=== PATIENT | female | born 1990 | race Caucasian/White ===

== ENCOUNTER 2023-05-23 20:03 | Inpatient (IN) | payer SELFPAY ==
[~2023-05-23 20:03] MED LIST: Iopamidol-370 76% 500 ML MDV (1 ML CHARGE) ONE
[2023-05-23] MEDS ORDERED: diphenhydrAMINE 50 MG/ML VIAL ONE (20:25)
[2023-05-23] MEDS ORDERED: Haloperidol Lactate 5 MG/ML VIAL ONE (20:25)
[2023-05-23] MEDS ORDERED: Promethazine HCl 25 MG in Sodium Chloride 0.9% 50 ML IVPB SCH (20:30)
[2023-05-23 20:33] LABS: #Basophils 0.1 thou/uL (0.0-0.2); #Neutrophils 10.3 thou/uL (1.40-6.50); %Basophils 0.4 % (0.0-1.0); %Lymphocytes 7.6 % (21.0-51.0); %Neutrophils 83.6 % (42.0-75.0); Hemoglobin 15.7 g/dL (12.0-16.0); Mean Corpuscular HGB CONC 37.8 g/dL (32.0-36.0); Mean Corpuscular Hemoglobin 31.8 pg (27.0-31.0); Mean Platelet Volume 11.6 fL (7.4-10.4); Platelet Count 315 10x3/uL (130-400); RBC Distribution Width 11.5 % (11.5-14.5); Red Blood Cell (RBC) Count 4.94 mill/uL (4.20-5.40); White Blood Cell (WBC) Count 12.3 10x3/uL (4.8-10.8)
[2023-05-23 20:40] LABS: BHCG - Serum Negative (NEGATIVE); Pregs Control Background? CLEAR/WHITE (CLR/WHITE); Pregs Control Bar Appear? YES (CONTROL BAR)
[2023-05-23 20:51] LABS: ALT (SGPT) 11 U/L (8-55); AST (SGOT) 20 U/L (5-34); Acetaminophen Less than 10 mcg/mL (10.0-30.0); Albumin 4.5 g/dL (3.5-5.0); Alcohol Less than 10.0 mg/dL (Less than 10); Alkaline Phosphatase 75 U/L (40-110); Anion Gap 22 mmol/L (10-20); BUN (Urea Nitrogen) 9 mg/dL (7.0-18.7); Bilirubin, Total 0.7 mg/dL (0.2-1.2); CK (CPK) 88 U/L (29-168); Calc. Creatinine Clearance 0 mL/min (70-130); Calcium 10.1 mg/dL (7.8-10.44); Carbon Dioxide 32 mmol/L (22-29); Chloride 80 mmol/L (98-107); Estimated GFR 55; Globulin 3.4 g/dL (2.4-3.5); Glucose 135 mg/dL (70-105); Lipase 33 U/L (8-78); Protein, Total 7.9 g/dL (6.0-8.3); Salicylate Less than 8.0 mg/dL (15.0-30.0); Sodium 132 mmol/L (136-145)
[2023-05-23] MEDS ORDERED: Potassium Bicarbonate/Cit Ac 25 MEQ TAB ONE (21:04)
[2023-05-23] MEDS ORDERED: D5 1/2 NS w/20 mEq KCL 1,000 ML IV SCH (21:15)
[2023-05-23] MEDS ORDERED: Magnesium 2 GM/50 ML BAG (IN WATER) ONE (21:41)
[2023-05-23] MEDS ORDERED: Scopolamine 1.5 mg/72 hour Patch TD SCH (22:00)
[2023-05-23] MEDS ORDERED: Pantoprazole 40 MG VIAL IVP SCH (22:30)
[2023-05-23] MEDS ORDERED: levETIRAcetam 500 MG/5 ML VIAL SLOW IVP SCH (22:45)
[2023-05-23] MEDS: Acetaminophen 325 MG TAB PO PRN (23:37)
[2023-05-23] MEDS: Potassium Chloride 20 MEQ in Premix Bag 1 BAG IVPB SCH (23:50)
[2023-05-23] MEDS: NS 0.9% w/ 20 MEQ KCL 1,000 ML/1,000 ML BAG IV SCH (23:51)
[2023-05-24 00:26] LABS: Amphetamine Not Detected (NotDetected); Barbiturates Screen Not Detected (NotDetected); Benzodiazepine Screen Not Detected (NotDetected); Cocaine Metabolite Screen Not Detected (NotDetected); Methadone Not Detected (NotDetected); Methamphetamine Not Detected (NotDetected); Opiate Screen Detected (NotDetected); Oxycodone Screen Not Detected (NotDetected); Phencyclidine (PCP) Not Detected (NotDetected); THC/Cannabinoid Screen Detected (NotDetected); Tricyclic Screen Not Detected (NotDetected)
[2023-05-24 00:27] LABS: Bacteria/HPF None Seen HPF (None Seen); Bilirubin Negative (Negative); Blood, Urine Negative (Negative); CAUTI Indications for Culture Dysuria,urgency,freq; Clarity Clear (Clear); Glucose, Urine (Dipstick) Normal (Negative); Ketone, Urine Negative (Negative); Leukocyte Negative Leu/uL (Negative); Nitrite Negative (Negative); Protein, Urine (Dipstick) 20 mg/dL (Neg-Trace); Specific Gravity, Urine 1.041 (1.002-1.036); Urobilinogen Normal mg/dL (Less than 2); pH, Urine 7.5 (5.0-9.0)
[2023-05-24 00:32] LABS: Urine Culture Reflex No No
[2023-05-24 00:55] VITALS: BMI 18.2
[2023-05-24] MEDS: Potassium Chloride 20 MEQ in Premix Bag 1 BAG IVPB SCH (01:28)
[2023-05-24] MEDS ORDERED: Potassium Chloride 20 MEQ TAB PO SCH (01:45)
[2023-05-24 05:58] LABS: #Monocytes 0.6 thou/uL (0.11-0.59); #Neutrophils 4.5 thou/uL (1.40-6.50); %Basophils 0.3 % (0.0-1.0); %Lymphocytes 17.7 % (21.0-51.0); %Monocytes 9.7 % (0.0-10.0); %Neutrophils 71.8 % (42.0-75.0); Mean Corpuscular HGB CONC 36.9 g/dL (32.0-36.0); Platelet Count 215 10x3/uL (130-400); RBC Distribution Width 11.8 % (11.5-14.5); Red Blood Cell (RBC) Count 3.75 mill/uL (4.20-5.40); White Blood Cell (WBC) Count 6.3 10x3/uL (4.8-10.8)
[2023-05-24] MEDS: NS 0.9% w/ 20 MEQ KCL 1,000 ML/1,000 ML BAG IV SCH ×3 (06:05→20:53)
[2023-05-24 06:07] LABS: Mean Corpuscular Volume 86.7 fl (78.0-98.0)
[2023-05-24 06:24] LABS: ALT (SGPT) 8 U/L (8-55); AST (SGOT) 16 U/L (5-34); Albumin 3.3 g/dL (3.5-5.0); Alkaline Phosphatase 55 U/L (40-110); Anion Gap 13 mmol/L (10-20); BUN (Urea Nitrogen) 7 mg/dL (7.0-18.7); Bilirubin, Total 0.6 mg/dL (0.2-1.2); Calc. Creatinine Clearance 71 mL/min (70-130); Calcium 8.2 mg/dL (7.8-10.44); Carbon Dioxide 35 mmol/L (22-29); Chloride 90 mmol/L (98-107); Estimated GFR 94; Globulin 2.3 g/dL (2.4-3.5); Glucose 105 mg/dL (70-105); Magnesium 2.7 mg/dL (1.6-2.6); Potassium 2.3 mmol/L (3.5-5.1); Protein, Total 5.6 g/dL (6.0-8.3); Sodium 136 mmol/L (136-145)
[2023-05-24] MEDS: Potassium Chloride 20 MEQ TAB PO SCH ×4 (06:42→20:51)
[2023-05-24] MEDS ORDERED: Electrolyte Replacement Protocol FS PRN (06:45)
[2023-05-24] MEDS: levETIRAcetam 500 MG TAB PO SCH ×2 (09:31→20:53)
[2023-05-24] MEDS: Senokot S 8.6-50 MG TAB PO SCH ×2 (09:31→20:53)
[2023-05-24] MEDS: Pantoprazole 40 MG VIAL IVP SCH (09:31)
[2023-05-24] MEDS: Polyethylene Glycol 3350 17 GM Packet PO SCH (09:31)
[2023-05-24] MEDS ORDERED: Potassium Bicarbonate/Cit Ac 20 MEQ TAB PO SCH (12:00)
[2023-05-24] MEDS: Acetaminophen/Codeine 30-300mg Tablet PO PRN ×2 (12:14→20:51)
[2023-05-24 17:49] LABS: Potassium 3.5 mmol/L (3.5-5.1)
[2023-05-24] MEDS: Promethazine 25 MG TAB PO PRN (20:52)
[2023-05-24] MEDS: Amoxicillin/Potassium Clav 500 MG TAB PO SCH (20:53)
[2023-05-25] MEDS: Acetaminophen/Codeine 30-300mg Tablet PO PRN ×3 (03:04→22:46)
[2023-05-25] MEDS: Promethazine 25 MG TAB PO PRN ×4 (03:05→22:46)
[2023-05-25] MEDS ORDERED: SUMAtriptan Succinate 6 MG/0.5 ML VIAL SC SCH (04:00)
[2023-05-25] MEDS ORDERED: traMADol HCl 50 MG TAB PO SCH (04:45)
[2023-05-25] MEDS ORDERED: Ondansetron PF 4 MG/2 ML Vial IVP SCH (04:45)
[2023-05-25 05:28] LABS: #Monocytes 0.5 thou/uL (0.11-0.59); #Neutrophils 3.2 thou/uL (1.40-6.50); %Basophils 0.6 % (0.0-1.0); %Eosinophils 0.4 % (0.0-10.0); %Lymphocytes 22.2 % (21.0-51.0); %Monocytes 9.7 % (0.0-10.0); %Neutrophils 66.9 % (42.0-75.0); Hemoglobin 11.9 g/dL (12.0-16.0); Mean Corpuscular HGB CONC 34.4 g/dL (32.0-36.0); Mean Corpuscular Hemoglobin 32.2 pg (27.0-31.0); Mean Platelet Volume 11.8 fL (7.4-10.4); Platelet Count 167 10x3/uL (130-400); RBC Distribution Width 12.3 % (11.5-14.5); White Blood Cell (WBC) Count 4.7 10x3/uL (4.8-10.8)
[2023-05-25 05:31] LABS: Mean Corpuscular Volume 93.5 fl (78.0-98.0)
[2023-05-25 05:47] LABS: ALT (SGPT) 9 U/L (8-55); AST (SGOT) 13 U/L (5-34); Albumin 3.3 g/dL (3.5-5.0); Alkaline Phosphatase 51 U/L (40-110); Anion Gap 11 mmol/L (10-20); BUN (Urea Nitrogen) 4 mg/dL (7.0-18.7); Bilirubin, Total 0.7 mg/dL (0.2-1.2); Calc. Creatinine Clearance 89 mL/min (70-130); Calcium 8.2 mg/dL (7.8-10.44); Carbon Dioxide 24 mmol/L (22-29); Chloride 110 mmol/L (98-107); Estimated GFR 120; Globulin 2.3 g/dL (2.4-3.5); Glucose 77 mg/dL (70-105); Magnesium 2.1 mg/dL (1.6-2.6); Potassium 3.8 mmol/L (3.5-5.1); Protein, Total 5.6 g/dL (6.0-8.3); Sodium 141 mmol/L (136-145)
[2023-05-25 05:50] LABS: Phosphorus Less than 1.0 mg/dL (2.3-4.7)
[2023-05-25] MEDS: NS 0.9% w/ 20 MEQ KCL 1,000 ML/1,000 ML BAG IV SCH ×3 (06:39→22:46)
[2023-05-25 06:55] LABS: Phosphorus Less than 1.0 mg/dL (2.3-4.7)
[2023-05-25] MEDS ORDERED: Potassium Phosphate 30 MMOL in Sodium Chloride 0.9% 500 ML IVPB SCH (09:00)
[2023-05-25] MEDS: Polyethylene Glycol 3350 17 GM Packet PO SCH (09:52)
[2023-05-25] MEDS: Thiamine 100 MG TAB PO SCH (09:52)
[2023-05-25] MEDS: pyridOXINE 50 MG (B6) TAB PO SCH (09:53)
[2023-05-25] MEDS: K-Phos Neutral 250 MG TAB PO SCH ×3 (09:53→17:21)
[2023-05-25] MEDS: levETIRAcetam 500 MG TAB PO SCH ×2 (09:53→20:13)
[2023-05-25] MEDS: Saccharomyces boulardii 250 MG CAP PO SCH (09:53)
[2023-05-25] MEDS: Senokot S 8.6-50 MG TAB PO SCH ×2 (09:53→20:13)
[2023-05-25] MEDS: Cyanocobalamin (Vitamin B-12) 1,000 MCG TAB PO SCH (09:53)
[2023-05-25] MEDS: Multivit, Therapeutic 1 TAB PO SCH (09:53)
[2023-05-25] MEDS: Folic Acid 1 MG TAB PO SCH (09:53)
[2023-05-25] MEDS: Pantoprazole 40 MG VIAL IVP SCH (09:54)
[2023-05-25] MEDS: Amoxicillin/Potassium Clav 500 MG TAB PO SCH ×2 (09:54→20:13)
[2023-05-25] MEDS: Dicyclomine 10 MG CAP PO SCH ×3 (13:49→20:13)
[2023-05-25] MEDS: Bisacodyl 10 MG SUPP PR SCH (20:13)
[2023-05-26] MEDS ORDERED: traMADol HCl 50 MG TAB PO SCH (01:00)
[2023-05-26] MEDS: Acetaminophen 325 MG TAB PO PRN (01:17)
[2023-05-26 06:16] LABS: #Eosinphils 0.1 thou/uL (0.0-0.7); #Monocytes 0.3 thou/uL (0.11-0.59); #Neutrophils 2.8 thou/uL (1.40-6.50); %Basophils 0.6 % (0.0-1.0); %Eosinophils 1.1 % (0.0-10.0); %Lymphocytes 30.7 % (21.0-51.0); %Monocytes 6.7 % (0.0-10.0); %Neutrophils 59.8 % (42.0-75.0); Hemoglobin 10.7 g/dL (12.0-16.0); Mean Corpuscular HGB CONC 33.4 g/dL (32.0-36.0); Mean Corpuscular Hemoglobin 31.9 pg (27.0-31.0); Mean Corpuscular Volume 95.5 fl (78.0-98.0); Platelet Count 175 10x3/uL (130-400); RBC Distribution Width 12.3 % (11.5-14.5); Red Blood Cell (RBC) Count 3.35 mill/uL (4.20-5.40); White Blood Cell (WBC) Count 4.6 10x3/uL (4.8-10.8)
[2023-05-26] MEDS ORDERED: Promethazine HCl 12.5 MG in Sodium Chloride 0.9% 50 ML IVPB SCH (09:00)
[2023-05-26] MEDS: Amoxicillin/Potassium Clav 500 MG TAB PO SCH ×2 (09:22→20:21)
[2023-05-26] MEDS: K-Phos Neutral 250 MG TAB PO SCH ×3 (09:22→17:55)
[2023-05-26] MEDS: Folic Acid 1 MG TAB PO SCH (09:22)
[2023-05-26] MEDS: Ergocalciferol 1.25 MG(50,000 UNITS) CAP PO SCH (09:22)
[2023-05-26] MEDS: Cyanocobalamin (Vitamin B-12) 1,000 MCG TAB PO SCH (09:22)
[2023-05-26] MEDS: Multivit, Therapeutic 1 TAB PO SCH (09:23)
[2023-05-26] MEDS: Saccharomyces boulardii 250 MG CAP PO SCH (09:23)
[2023-05-26] MEDS: Pantoprazole 40 MG VIAL IVP SCH (09:23)
[2023-05-26] MEDS: levETIRAcetam 500 MG TAB PO SCH ×2 (09:23→20:21)
[2023-05-26] MEDS: pyridOXINE 50 MG (B6) TAB PO SCH (09:23)
[2023-05-26] MEDS: Acetaminophen/Codeine 30-300mg Tablet PO PRN ×4 (09:24→22:19)
[2023-05-26] MEDS: Thiamine 100 MG TAB PO SCH (09:24)
[2023-05-26] MEDS: Polyethylene Glycol 3350 17 GM Packet PO SCH (10:00)
[2023-05-26] MEDS: Senokot S 8.6-50 MG TAB PO SCH ×2 (10:00→20:22)
[2023-05-26 10:12] LABS: Anion Gap 12 mmol/L (10-20); BUN (Urea Nitrogen) Less than 4 mg/dL (7.0-18.7); Calc. Creatinine Clearance 92 mL/min (70-130); Calcium 8.5 mg/dL (7.8-10.44); Carbon Dioxide 21 mmol/L (22-29); Chloride 110 mmol/L (98-107); Estimated GFR 121; Glucose 74 mg/dL (70-105); Magnesium 1.7 mg/dL (1.6-2.6); Phosphorus 3.1 mg/dL (2.3-4.7); Sodium 139 mmol/L (136-145)
[2023-05-26] MEDS: Promethazine 25 MG TAB PO PRN ×2 (11:00→17:55)
[2023-05-26] MEDS: NS 0.9% w/ 20 MEQ KCL 1,000 ML/1,000 ML BAG IV SCH ×2 (13:09→22:19)
[2023-05-26] MEDS: Bisacodyl 10 MG SUPP PR SCH (20:22)
[2023-05-27] MEDS: Promethazine 25 MG TAB PO PRN ×3 (02:10→18:17)
[2023-05-27] MEDS: Acetaminophen/Codeine 30-300mg Tablet PO PRN ×4 (02:14→18:17)
[2023-05-27] MEDS: NS 0.9% w/ 20 MEQ KCL 1,000 ML/1,000 ML BAG IV SCH (06:37)
[2023-05-27 06:54] LABS: Anion Gap 12 mmol/L (10-20); BUN (Urea Nitrogen) Less than 4 mg/dL (7.0-18.7); Calc. Creatinine Clearance 92 mL/min (70-130); Calcium 8.4 mg/dL (7.8-10.44); Carbon Dioxide 20 mmol/L (22-29); Chloride 112 mmol/L (98-107); Estimated GFR 121; Glucose 85 mg/dL (70-105); Magnesium 1.5 mg/dL (1.6-2.6); Phosphorus 2.6 mg/dL (2.3-4.7); Potassium 4.2 mmol/L (3.5-5.1); Sodium 140 mmol/L (136-145)
[2023-05-27] MEDS: Amoxicillin/Potassium Clav 500 MG TAB PO SCH ×2 (08:27→20:32)
[2023-05-27] MEDS: Polyethylene Glycol 3350 17 GM Packet PO SCH (08:27)
[2023-05-27] MEDS: Pantoprazole 40 MG VIAL IVP SCH (08:27)
[2023-05-27] MEDS: levETIRAcetam 500 MG TAB PO SCH ×2 (08:27→20:33)
[2023-05-27] MEDS: Folic Acid 1 MG TAB PO SCH (08:27)
[2023-05-27] MEDS: Cyanocobalamin (Vitamin B-12) 1,000 MCG TAB PO SCH (08:27)
[2023-05-27] MEDS: Multivit, Therapeutic 1 TAB PO SCH (08:27)
[2023-05-27] MEDS: K-Phos Neutral 250 MG TAB PO SCH ×3 (08:27→18:17)
[2023-05-27] MEDS: Thiamine 100 MG TAB PO SCH (08:28)
[2023-05-27] MEDS: pyridOXINE 50 MG (B6) TAB PO SCH (08:28)
[2023-05-27] MEDS: Saccharomyces boulardii 250 MG CAP PO SCH (08:28)
[2023-05-27] MEDS: Senokot S 8.6-50 MG TAB PO SCH ×2 (08:28→20:32)
[2023-05-27] MEDS ORDERED: Magnesium 2 GM/50 ML(in water) 2 GM in Premix Bag 1 BAG IVPB SCH (09:00)
[2023-05-27] MEDS ORDERED: Lidocaine 1% PF 5 ML VIAL ONE (10:04)
[2023-05-27] MEDS ORDERED: PROPOFOL 200 MG/20 ML VIAL ONE (10:04)
[2023-05-27] MEDS ORDERED: Ondansetron PF 4 MG/2 ML Vial ONE (10:04)
[2023-05-27] MEDS ORDERED: fentaNYL 50 mcg/mL 1 mL Vial ONE ×2 (10:24→10:38)
[2023-05-27] MEDS: Bisacodyl 10 MG SUPP PR SCH (20:36)
[2023-05-28] MEDS: NS 0.9% w/ 20 MEQ KCL 1,000 ML/1,000 ML BAG IV SCH ×3 (00:30→16:29)
[2023-05-28 07:59] LABS: Anion Gap 10 mmol/L (10-20); BUN (Urea Nitrogen) Less than 4 mg/dL (7.0-18.7); Calc. Creatinine Clearance 96 mL/min (70-130); Calcium 8.4 mg/dL (7.8-10.44); Carbon Dioxide 21 mmol/L (22-29); Chloride 113 mmol/L (98-107); Estimated GFR 122; Glucose 71 mg/dL (70-105); Magnesium 2.2 mg/dL (1.6-2.6); Phosphorus 3.1 mg/dL (2.3-4.7); Potassium 4.7 mmol/L (3.5-5.1); Sodium 139 mmol/L (136-145)
[2023-05-28] MEDS: Cyanocobalamin (Vitamin B-12) 1,000 MCG TAB PO SCH (08:25)
[2023-05-28] MEDS: Amoxicillin/Potassium Clav 500 MG TAB PO SCH ×2 (08:25→20:17)
[2023-05-28] MEDS: Folic Acid 1 MG TAB PO SCH (08:25)
[2023-05-28] MEDS: K-Phos Neutral 250 MG TAB PO SCH ×3 (08:25→16:31)
[2023-05-28] MEDS: Polyethylene Glycol 3350 17 GM Packet PO SCH (08:26)
[2023-05-28] MEDS: Saccharomyces boulardii 250 MG CAP PO SCH (08:26)
[2023-05-28] MEDS: Multivit, Therapeutic 1 TAB PO SCH (08:26)
[2023-05-28] MEDS: Thiamine 100 MG TAB PO SCH (08:26)
[2023-05-28] MEDS: pyridOXINE 50 MG (B6) TAB PO SCH (08:26)
[2023-05-28] MEDS: Pantoprazole 40 MG VIAL IVP SCH (08:26)
[2023-05-28] MEDS: Senokot S 8.6-50 MG TAB PO SCH ×2 (08:26→20:17)
[2023-05-28] MEDS: Acetaminophen/Codeine 30-300mg Tablet PO PRN (08:26)
[2023-05-28] MEDS: levETIRAcetam 500 MG TAB PO SCH ×2 (08:26→20:17)
[2023-05-28] MEDS: Promethazine 25 MG TAB PO PRN (09:47)
[2023-05-28] MEDS: ALPRAZolam 0.25 MG TAB PO PRN ×2 (16:13→23:51)
[2023-05-28] MEDS: Promethazine HCl 12.5 MG in Sodium Chloride 0.9% 50 ML IVPB PRN ×2 (16:25→23:00)
[2023-05-28] MEDS: Bisacodyl 10 MG SUPP PR SCH (20:14)
[2023-05-28] MEDS ORDERED: Nitroglycerin 2% Ointment 1 INCH/1 GM Packet TOP SCH (23:45)
[2023-05-29 00:31] LABS: Troponin I Less than 0.010 ng/mL (< 0.028)
[2023-05-29] MEDS: Promethazine HCl 12.5 MG in Sodium Chloride 0.9% 50 ML IVPB PRN ×3 (05:22→23:25)
[2023-05-29 07:48] LABS: #Eosinphils 0.1 thou/uL (0.0-0.7); #Monocytes 0.5 thou/uL (0.11-0.59); #Neutrophils 4.5 thou/uL (1.40-6.50); %Basophils 0.5 % (0.0-1.0); %Eosinophils 1.6 % (0.0-10.0); %Lymphocytes 15.6 % (21.0-51.0); %Monocytes 7.4 % (0.0-10.0); %Neutrophils 74.4 % (42.0-75.0); Hemoglobin 11.9 g/dL (12.0-16.0); Mean Corpuscular HGB CONC 34.1 g/dL (32.0-36.0); Mean Corpuscular Hemoglobin 31.8 pg (27.0-31.0); Mean Corpuscular Volume 93.3 fl (78.0-98.0); Mean Platelet Volume 11.6 fL (7.4-10.4); Platelet Count 223 10x3/uL (130-400); RBC Distribution Width 11.9 % (11.5-14.5); Red Blood Cell (RBC) Count 3.74 mill/uL (4.20-5.40); White Blood Cell (WBC) Count 6.1 10x3/uL (4.8-10.8)
[2023-05-29 08:12] LABS: ALT (SGPT) 9 U/L (8-55); AST (SGOT) 16 U/L (5-34); Albumin 3.4 g/dL (3.5-5.0); Alkaline Phosphatase 56 U/L (40-110); Anion Gap 11 mmol/L (10-20); BUN (Urea Nitrogen) Less than 4 mg/dL (7.0-18.7); Bilirubin, Total 0.6 mg/dL (0.2-1.2); Calc. Creatinine Clearance 93 mL/min (70-130); Carbon Dioxide 25 mmol/L (22-29); Chloride 109 mmol/L (98-107); Estimated GFR 121; Globulin 2.5 g/dL (2.4-3.5); Glucose 100 mg/dL (70-105); Potassium 4.1 mmol/L (3.5-5.1); Protein, Total 5.9 g/dL (6.0-8.3); Sodium 141 mmol/L (136-145)
[2023-05-29] MEDS: Multivit, Therapeutic 1 TAB PO SCH (10:22)
[2023-05-29] MEDS: levETIRAcetam 500 MG TAB PO SCH ×2 (10:22→20:46)
[2023-05-29] MEDS: Saccharomyces boulardii 250 MG CAP PO SCH (10:23)
[2023-05-29] MEDS: Senokot S 8.6-50 MG TAB PO SCH ×2 (10:23→20:46)
[2023-05-29] MEDS: Polyethylene Glycol 3350 17 GM Packet PO SCH (10:23)
[2023-05-29] MEDS: Folic Acid 1 MG TAB PO SCH (10:23)
[2023-05-29] MEDS: Thiamine 100 MG TAB PO SCH (10:23)
[2023-05-29] MEDS: pyridOXINE 50 MG (B6) TAB PO SCH (10:23)
[2023-05-29] MEDS: Amoxicillin/Potassium Clav 500 MG TAB PO SCH ×2 (10:23→20:46)
[2023-05-29] MEDS: Cyanocobalamin (Vitamin B-12) 1,000 MCG TAB PO SCH (10:23)
[2023-05-29] MEDS: K-Phos Neutral 250 MG TAB PO SCH (10:23)
[2023-05-29] MEDS: Pantoprazole 40 MG VIAL IVP SCH (10:24)
[2023-05-29] MEDS: Acetaminophen/Codeine 30-300mg Tablet PO PRN ×3 (10:28→20:46)
[2023-05-29] MEDS: ALPRAZolam 0.25 MG TAB PO PRN ×3 (10:28→20:46)
[2023-05-29] MEDS: NS 0.9% w/ 20 MEQ KCL 1,000 ML/1,000 ML BAG IV SCH (16:01)
[2023-05-29] MEDS: Bisacodyl 10 MG SUPP PR SCH (20:46)
[2023-05-29] MEDS: Promethazine 25 MG TAB PO PRN (20:47)
[2023-05-30] MEDS: Acetaminophen/Codeine 30-300mg Tablet PO PRN ×2 (01:50→14:28)
[2023-05-30] MEDS: ALPRAZolam 0.25 MG TAB PO PRN ×3 (01:51→20:39)
[2023-05-30] MEDS: Promethazine 25 MG TAB PO PRN (04:20)
[2023-05-30] MEDS: Promethazine HCl 12.5 MG in Sodium Chloride 0.9% 50 ML IVPB PRN ×3 (06:19→22:57)
[2023-05-30] MEDS: NS 0.9% w/ 20 MEQ KCL 1,000 ML/1,000 ML BAG IV SCH ×2 (07:00→18:06)
[2023-05-30 07:31] LABS: #Basophils 0.1 thou/uL (0.0-0.2); #Eosinphils 0.1 thou/uL (0.0-0.7); #Monocytes 0.5 thou/uL (0.11-0.59); #Neutrophils 3.3 thou/uL (1.40-6.50); %Basophils 0.9 % (0.0-1.0); %Eosinophils 2.3 % (0.0-10.0); %Lymphocytes 30.5 % (21.0-51.0); %Monocytes 8.3 % (0.0-10.0); %Neutrophils 57.8 % (42.0-75.0); Hemoglobin 12.6 g/dL (12.0-16.0); Mean Corpuscular HGB CONC 33.4 g/dL (32.0-36.0); Mean Corpuscular Hemoglobin 31.8 pg (27.0-31.0); Mean Corpuscular Volume 95.2 fl (78.0-98.0); Mean Platelet Volume 11.4 fL (7.4-10.4); Platelet Count 257 10x3/uL (130-400); Red Blood Cell (RBC) Count 3.96 mill/uL (4.20-5.40); White Blood Cell (WBC) Count 5.6 10x3/uL (4.8-10.8)
[2023-05-30 08:00] LABS: ALT (SGPT) 9 U/L (8-55); AST (SGOT) 15 U/L (5-34); Albumin 3.5 g/dL (3.5-5.0); Alkaline Phosphatase 59 U/L (40-110); Anion Gap 13 mmol/L (10-20); BUN (Urea Nitrogen) Less than 4 mg/dL (7.0-18.7); Bilirubin, Total 0.5 mg/dL (0.2-1.2); Calc. Creatinine Clearance 83 mL/min (70-130); Calcium 8.8 mg/dL (7.8-10.44); Carbon Dioxide 25 mmol/L (22-29); Chloride 110 mmol/L (98-107); Estimated GFR 113; Globulin 2.7 g/dL (2.4-3.5); Glucose 106 mg/dL (70-105); Magnesium 1.9 mg/dL (1.6-2.6); Potassium 3.9 mmol/L (3.5-5.1); Protein, Total 6.2 g/dL (6.0-8.3); Sodium 144 mmol/L (136-145)
[2023-05-30] MEDS: Polyethylene Glycol 3350 17 GM Packet PO SCH (10:16)
[2023-05-30] MEDS: Senokot S 8.6-50 MG TAB PO SCH ×2 (10:17→20:40)
[2023-05-30] MEDS: Saccharomyces boulardii 250 MG CAP PO SCH (14:28)
[2023-05-30] MEDS: Multivit, Therapeutic 1 TAB PO SCH (14:29)
[2023-05-30] MEDS: Folic Acid 1 MG TAB PO SCH (14:29)
[2023-05-30] MEDS: Thiamine 100 MG TAB PO SCH (14:29)
[2023-05-30] MEDS: pyridOXINE 50 MG (B6) TAB PO SCH (14:29)
[2023-05-30] MEDS: Cyanocobalamin (Vitamin B-12) 1,000 MCG TAB PO SCH (14:29)
[2023-05-30] MEDS: levETIRAcetam 500 MG TAB PO SCH ×2 (14:29→20:39)
[2023-05-30] MEDS: Pantoprazole 40 MG VIAL IVP SCH (14:30)
[2023-05-30] MEDS: Amoxicillin/Potassium Clav 500 MG TAB PO SCH ×2 (14:33→20:39)
[2023-05-30] MEDS ORDERED: Acetaminophen 325 MG/10.15 ML UDCUP PO PRN (14:46)
[2023-05-30] MEDS ORDERED: busPIRone HCl 5 MG TAB PO SCH (17:00)
[2023-05-30] MEDS: Bisacodyl 10 MG SUPP PR SCH (20:40)
[2023-05-30] MEDS ORDERED: traZODone HCl 50 MG TAB PO SCH (21:00)
[2023-05-30] MEDS: Fioricet 325/50/40 mg Tablet PO PRN (23:16)
[2023-05-31] MEDS: Fioricet 325/50/40 mg Tablet PO PRN ×2 (05:33→21:44)
[2023-05-31] MEDS: Promethazine HCl 12.5 MG in Sodium Chloride 0.9% 50 ML IVPB PRN ×3 (05:33→23:11)
[2023-05-31 07:33] LABS: #Eosinphils 0.1 thou/uL (0.0-0.7); #Monocytes 0.4 thou/uL (0.11-0.59); #Neutrophils 3.1 thou/uL (1.40-6.50); %Basophils 0.8 % (0.0-1.0); %Lymphocytes 28.4 % (21.0-51.0); %Monocytes 7.7 % (0.0-10.0); %Neutrophils 60.7 % (42.0-75.0); Hemoglobin 12.3 g/dL (12.0-16.0); Mean Corpuscular HGB CONC 33.1 g/dL (32.0-36.0); Mean Corpuscular Hemoglobin 31.6 pg (27.0-31.0); Mean Corpuscular Volume 95.6 fl (78.0-98.0); Mean Platelet Volume 11.7 fL (7.4-10.4); Platelet Count 283 10x3/uL (130-400); RBC Distribution Width 12.1 % (11.5-14.5); Red Blood Cell (RBC) Count 3.89 mill/uL (4.20-5.40)
[2023-05-31 08:00] LABS: Anion Gap 11 mmol/L (10-20); BUN (Urea Nitrogen) Less than 4 mg/dL (7.0-18.7); Calc. Creatinine Clearance 92 mL/min (70-130); Carbon Dioxide 25 mmol/L (22-29); Chloride 110 mmol/L (98-107); Estimated GFR 121; Glucose 63 mg/dL (70-105); Potassium 3.7 mmol/L (3.5-5.1); Sodium 142 mmol/L (136-145)
[2023-05-31] MEDS: Cyanocobalamin (Vitamin B-12) 1,000 MCG TAB PO SCH ×2 (10:41→12:34)
[2023-05-31] MEDS: busPIRone HCl 10 MG TAB PO SCH ×2 (10:41→12:33)
[2023-05-31] MEDS: Amoxicillin/Potassium Clav 500 MG TAB PO SCH ×2 (10:41→12:33)
[2023-05-31] MEDS: Multivit, Therapeutic 1 TAB PO SCH ×2 (10:42→12:33)
[2023-05-31] MEDS: levETIRAcetam 500 MG TAB PO SCH ×3 (10:42→20:44)
[2023-05-31] MEDS: Polyethylene Glycol 3350 17 GM Packet PO SCH ×3 (10:42→13:40)
[2023-05-31] MEDS: Folic Acid 1 MG TAB PO SCH ×2 (10:42→12:33)
[2023-05-31] MEDS: Pantoprazole 40 MG VIAL IVP SCH ×2 (10:42→12:34)
[2023-05-31] MEDS: Saccharomyces boulardii 250 MG CAP PO SCH ×2 (10:42→12:34)
[2023-05-31] MEDS: pyridOXINE 50 MG (B6) TAB PO SCH ×2 (10:42→12:33)
[2023-05-31] MEDS: Senokot S 8.6-50 MG TAB PO SCH ×2 (10:43→12:34)
[2023-05-31] MEDS: Thiamine 100 MG TAB PO SCH ×2 (10:43→12:34)
[2023-05-31] MEDS: D5 1/2 NS w/20 mEq KCL 1,000 ML IV SCH ×2 (11:10→23:17)
[2023-05-31] MEDS: NS 0.9% w/ 20 MEQ KCL 1,000 ML/1,000 ML BAG IV SCH (11:15)
[2023-05-31] MEDS: ALPRAZolam 0.25 MG TAB PO PRN ×2 (13:17→23:11)
[2023-05-31] MEDS: busPIRone HCl 5 MG TAB PO SCH (17:15)
[2023-05-31] MEDS ORDERED: traZODone HCl 50 MG TAB PO SCH (21:00)
[2023-05-31] MEDS: traZODone HCl 50 MG TAB PO SCH (21:44)
[2023-06-01] MEDS: Promethazine 25 MG TAB PO PRN (02:40)
[2023-06-01] MEDS: ALPRAZolam 0.25 MG TAB PO PRN ×2 (05:08→20:37)
[2023-06-01] MEDS: Promethazine HCl 12.5 MG in Sodium Chloride 0.9% 50 ML IVPB PRN (05:41)
[2023-06-01 06:52] LABS: Anion Gap 10 mmol/L (10-20); BUN (Urea Nitrogen) Less than 4 mg/dL (7.0-18.7); Calc. Creatinine Clearance 89 mL/min (70-130); Calcium 8.4 mg/dL (7.8-10.44); Carbon Dioxide 24 mmol/L (22-29); Chloride 112 mmol/L (98-107); Estimated GFR 120; Glucose 70 mg/dL (70-105); Potassium 3.6 mmol/L (3.5-5.1); Sodium 142 mmol/L (136-145)
[2023-06-01] MEDS: busPIRone HCl 5 MG TAB PO SCH ×3 (14:24→16:10)
[2023-06-01] MEDS: Saccharomyces boulardii 250 MG CAP PO SCH (14:25)
[2023-06-01] MEDS: Thiamine 100 MG TAB PO SCH (14:25)
[2023-06-01] MEDS: pyridOXINE 50 MG (B6) TAB PO SCH (14:25)
[2023-06-01] MEDS: Multivit, Therapeutic 1 TAB PO SCH (14:25)
[2023-06-01] MEDS: Cyanocobalamin (Vitamin B-12) 1,000 MCG TAB PO SCH (14:25)
[2023-06-01] MEDS: Folic Acid 1 MG TAB PO SCH (14:26)
[2023-06-01] MEDS: levETIRAcetam 500 MG TAB PO SCH ×2 (14:26→20:37)
[2023-06-01] MEDS: Polyethylene Glycol 3350 17 GM Packet PO SCH (14:26)
[2023-06-01] MEDS: D5 1/2 NS w/20 mEq KCL 1,000 ML IV SCH (14:36)
[2023-06-01] MEDS: Promethazine HCl 6.25 MG/5 ML Syrup PO PRN (17:27)
[2023-06-01] MEDS: Methocarbamol 500 MG TAB PO PRN (20:37)
[2023-06-01] MEDS: Fioricet 325/50/40 mg Tablet PO PRN (22:37)
[2023-06-01] MEDS: traZODone HCl 50 MG TAB PO SCH (22:37)
[2023-06-02] MEDS: Methocarbamol 500 MG TAB PO PRN ×3 (01:12→22:13)
[2023-06-02] MEDS: Promethazine HCl 6.25 MG/5 ML Syrup PO PRN ×3 (01:20→16:36)
[2023-06-02] MEDS: ALPRAZolam 0.25 MG TAB PO PRN ×3 (04:31→22:13)
[2023-06-02] MEDS: Fioricet 325/50/40 mg Tablet PO PRN ×3 (07:18→22:13)
[2023-06-02] MEDS: pyridOXINE 50 MG (B6) TAB PO SCH (08:37)
[2023-06-02] MEDS: Cyanocobalamin (Vitamin B-12) 1,000 MCG TAB PO SCH (08:37)
[2023-06-02] MEDS: Folic Acid 1 MG TAB PO SCH (08:37)
[2023-06-02] MEDS: busPIRone HCl 5 MG TAB PO SCH ×3 (08:38→16:36)
[2023-06-02] MEDS: Multivit, Therapeutic 1 TAB PO SCH (08:38)
[2023-06-02] MEDS: Saccharomyces boulardii 250 MG CAP PO SCH (08:38)
[2023-06-02] MEDS: Thiamine 100 MG TAB PO SCH (08:38)
[2023-06-02] MEDS: levETIRAcetam 500 MG TAB PO SCH ×2 (08:38→22:13)
[2023-06-02] MEDS: Ergocalciferol 1.25 MG(50,000 UNITS) CAP PO SCH (08:38)
[2023-06-02] MEDS: Polyethylene Glycol 3350 17 GM Packet PO SCH (08:39)
[2023-06-02 09:31] LABS: #Eosinphils 0.1 thou/uL (0.0-0.7); #Monocytes 0.5 thou/uL (0.11-0.59); #Neutrophils 4.2 thou/uL (1.40-6.50); %Basophils 0.5 % (0.0-1.0); %Eosinophils 1.1 % (0.0-10.0); %Monocytes 8.5 % (0.0-10.0); %Neutrophils 67.4 % (42.0-75.0); Hemoglobin 12.2 g/dL (12.0-16.0); Mean Corpuscular HGB CONC 34.7 g/dL (32.0-36.0); Mean Corpuscular Hemoglobin 31.8 pg (27.0-31.0); Mean Corpuscular Volume 91.7 fl (78.0-98.0); Mean Platelet Volume 11.6 fL (7.4-10.4); Platelet Count 277 10x3/uL (130-400); RBC Distribution Width 12.1 % (11.5-14.5); Red Blood Cell (RBC) Count 3.84 mill/uL (4.20-5.40); White Blood Cell (WBC) Count 6.3 10x3/uL (4.8-10.8)
[2023-06-02 09:54] LABS: Anion Gap 10 mmol/L (10-20); BUN (Urea Nitrogen) Less than 4 mg/dL (7.0-18.7); Calc. Creatinine Clearance 81 mL/min (70-130); Calcium 8.9 mg/dL (7.8-10.44); Carbon Dioxide 28 mmol/L (22-29); Chloride 108 mmol/L (98-107); Estimated GFR 110; Glucose 94 mg/dL (70-105); Magnesium 1.8 mg/dL (1.6-2.6); Potassium 3.7 mmol/L (3.5-5.1); Sodium 142 mmol/L (136-145)
[2023-06-02] MEDS: traZODone HCl 50 MG TAB PO SCH (22:13)
[2023-06-03] MEDS: Promethazine HCl 6.25 MG/5 ML Syrup PO PRN ×3 (05:43→23:44)
[2023-06-03] MEDS: levETIRAcetam 500 MG TAB PO SCH ×2 (08:20→22:40)
[2023-06-03] MEDS: Cyanocobalamin (Vitamin B-12) 1,000 MCG TAB PO SCH (08:20)
[2023-06-03] MEDS: Multivit, Therapeutic 1 TAB PO SCH (08:20)
[2023-06-03] MEDS: pyridOXINE 50 MG (B6) TAB PO SCH (08:20)
[2023-06-03] MEDS: Folic Acid 1 MG TAB PO SCH (08:20)
[2023-06-03] MEDS: Saccharomyces boulardii 250 MG CAP PO SCH (08:20)
[2023-06-03] MEDS: Thiamine 100 MG TAB PO SCH (08:20)
[2023-06-03] MEDS: busPIRone HCl 5 MG TAB PO SCH ×3 (08:20→16:12)
[2023-06-03] MEDS: Polyethylene Glycol 3350 17 GM Packet PO SCH (08:20)
[2023-06-03 11:31] LABS: Magnesium 2.2 mg/dL (1.6-2.6); Potassium 3.5 mmol/L (3.5-5.1)
[2023-06-03] MEDS: ALPRAZolam 0.25 MG TAB PO PRN ×2 (14:02→22:40)
[2023-06-03] MEDS: Fioricet 325/50/40 mg Tablet PO PRN ×2 (14:02→22:40)
[2023-06-03] MEDS: Methocarbamol 500 MG TAB PO PRN (14:03)
[2023-06-03] MEDS: traZODone HCl 50 MG TAB PO SCH (22:40)
[2023-06-04] MEDS ORDERED: Lidocaine 4% Patch TD SCH (00:15)
[2023-06-04] MEDS ORDERED: Acetaminophen 500 MG TAB PO SCH (00:15)
[2023-06-04] MEDS ORDERED: traMADol HCl 50 MG TAB PO SCH (00:15)
[2023-06-04] MEDS ORDERED: diphenhydrAMINE 25 MG CAP PO SCH (01:30)
[2023-06-04] MEDS: Polyethylene Glycol 3350 17 GM Packet PO SCH (07:59)
[2023-06-04] MEDS ORDERED: Scopolamine 1.5 mg/72 hour Patch TD SCH (08:00)
[2023-06-04 08:13] VITALS: BP 97/60; TEMP 98.1
[2023-06-04] MEDS: Folic Acid 1 MG TAB PO SCH (08:50)
[2023-06-04] MEDS: Saccharomyces boulardii 250 MG CAP PO SCH (08:50)
[2023-06-04] MEDS: levETIRAcetam 500 MG TAB PO SCH (08:50)
[2023-06-04] MEDS: pyridOXINE 50 MG (B6) TAB PO SCH (08:51)
[2023-06-04] MEDS: busPIRone HCl 5 MG TAB PO SCH ×3 (08:51→16:36)
[2023-06-04] MEDS: Thiamine 100 MG TAB PO SCH (08:51)
[2023-06-04] MEDS: Cyanocobalamin (Vitamin B-12) 1,000 MCG TAB PO SCH (08:51)
[2023-06-04] MEDS: Multivit, Therapeutic 1 TAB PO SCH (08:51)
[2023-06-04] MEDS ORDERED: Transdermal Patch Removal TOP SCH (12:00)
[2023-06-04] MEDS: ALPRAZolam 0.25 MG TAB PO PRN (16:39)
[2023-06-04] MEDS: Fioricet 325/50/40 mg Tablet PO PRN (16:57)
[2023-06-04] MEDS: Promethazine HCl 6.25 MG/5 ML Syrup PO PRN (16:58)
== END 2023-06-04 18:13 | disposition home or self-care (01) | DRG 392 ==
LOC: ERS 20:03 → 2SW 21:52 → EEVIPCON 05-24 16:26 → OBSVTOIN 05-24 16:26 → T4-B 05-26 14:07
PROVIDERS: ADMIT Internal Medicine; ATTEND Internal Medicine
PROC: 0DB98ZX Excision of Duodenum, Via Natural or Artificial Opening Endoscopic, Diagnostic (ICD-10-PCS; principal; 2023-05-27)
PROC: 0DB78ZX Excision of Stomach, Pylorus, Via Natural or Artificial Opening Endoscopic, Diagnostic (ICD-10-PCS; 2023-05-27)
DX: R11.2 Nausea with vomiting, unspecified (principal); N17.9 Acute kidney failure, unspecified; E87.1 Hypo-osmolality and hyponatremia; G40.909 Epilepsy, unspecified, not intractable, without status epilepticus; F31.9 Bipolar disorder, unspecified; F41.9 Anxiety disorder, unspecified; J45.909 Unspecified asthma, uncomplicated; F17.210 Nicotine dependence, cigarettes, uncomplicated; E87.6 Hypokalemia; K04.7 Periapical abscess without sinus; E83.39 Other disorders of phosphorus metabolism; K59.00 Constipation, unspecified; F12.10 Cannabis abuse, uncomplicated; K29.70 Gastritis, unspecified, without bleeding; R94.31 Abnormal electrocardiogram [ECG] [EKG]; K29.60 Other gastritis without bleeding; E16.2 Hypoglycemia, unspecified; F41.1 Generalized anxiety disorder; Z88.4 Allergy status to anesthetic agent; Z91.018 Allergy to other foods; Z91.011 Allergy to milk products; Z79.899 Other long term (current) drug therapy; I25.2 Old myocardial infarction; Z95.5 Presence of coronary angioplasty implant and graft; Z91.148 Patient's other noncompliance with medication regimen for other reason; Z90.49 Acquired absence of other specified parts of digestive tract; Z98.890 Other specified postprocedural states
CPT/HCPCS: 36415; 36416; 70551; 70553; 71045; 74177; 78264; 80048; 80053; 80306; 80307; 81001; 82306; 82550; 83690; 83735; 83880; 84100; 84132; 84443; 84484; 84703; 85025; 88305; 93005; 93010; 93306; 96361; 96365; 96375; 96376; A9541; C9113; G0378; J1200; J1630; J1953; J2405; J2550; J2704; J3010; J3030; J3475; J3480; J7030; Q0169; Q9967

== ENCOUNTER 2023-10-04 06:05 | Inpatient (IN) | payer SELFPAY ==
[2023-10-04] MEDS ORDERED: Acetaminophen 500 MG TAB ONE (08:00)
[2023-10-04] MEDS ORDERED: Ondansetron PF 4 MG/2 ML Vial ONE ×2 (08:01→12:13)
[2023-10-04] MEDS ORDERED: Morphine 4 MG/ML VIAL ONE (08:01)
[2023-10-04 08:08] LABS: BHCG - Serum Negative (NEGATIVE); Pregs Control Background? CLEAR/WHITE (CLR/WHITE); Pregs Control Bar Appear? YES (CONTROL BAR)
[2023-10-04 08:26] LABS: ALT (SGPT) 11 U/L (8-55); AST (SGOT) 27 U/L (5-34); Albumin 4.3 g/dL (3.5-5.0); Alkaline Phosphatase 72 U/L (40-110); BUN (Urea Nitrogen) 9 mg/dL (7.0-18.7); CK (CPK) 90 U/L (29-168); Calc. Creatinine Clearance 0 mL/min (70-130); Calcium 9.7 mg/dL (7.8-10.44); Estimated GFR 93; Globulin 2.4 g/dL (2.4-3.5); Glucose 155 mg/dL (70-105); Protein, Total 6.7 g/dL (6.0-8.3)
[2023-10-04 08:35] LABS: #Basophils 0.1 thou/uL (0.0-0.2); #Monocytes 0.6 thou/uL (0.11-0.59); #Neutrophils 3.8 thou/uL (1.40-6.50); %Basophils 0.8 % (0.0-1.0); %Eosinophils 0.3 % (0.0-10.0); %Lymphocytes 24.5 % (21.0-51.0); %Monocytes 9.8 % (0.0-10.0); %Neutrophils 64.3 % (42.0-75.0); Anion Gap 20 mmol/L (10-20); Carbon Dioxide 39 mmol/L (22-29); Chloride 72 mmol/L (98-107); Hematocrit 41.4 % (36.0-47.0); Hemoglobin 15.9 g/dL (12.0-16.0); Mean Corpuscular HGB CONC 38.4 g/dL (32.0-36.0); Mean Corpuscular Hemoglobin 32.6 pg (27.0-31.0); Mean Corpuscular Volume 84.8 fl (78.0-98.0); Mean Platelet Volume 11.6 fL (7.4-10.4); Platelet Count 262 10x3/uL (130-400); RBC Distribution Width 11.6 % (11.5-14.5); Red Blood Cell (RBC) Count 4.88 mill/uL (4.20-5.40); Sodium 130 mmol/L (136-145)
[2023-10-04 08:40] LABS: Potassium 1.4 mmol/L (3.5-5.1)
[2023-10-04] MEDS ORDERED: Acetaminophen 325 MG/10.15 ML UDCUP ONE (09:11)
[2023-10-04] MEDS ORDERED: Potassium Bicarbonate/Cit Ac 25 MEQ TAB PO SCH (09:15)
[2023-10-04] MEDS ORDERED: D5 1/4 NS w/20 mEq KCL 1,000 ML IV SCH (09:15)
[2023-10-04 09:46] LABS: Analyzer IN Cardio ER; Base Excess 12.5 mEq/L (-2.0 to +3.0); Calcium, Ionized (venous) 0.98 mmol/L (1.16-1.32); Chloride (VBG) 82 mmol/L (98-106); Hematocrit-VBG 43 % (36.0-47.0); Hemoglobin (Hb) 14.6 g/dL (11.7-15.5); Sodium 129 mmol/L (133-146); pH (venous) 7.592 (7.32-7.43)
[2023-10-04 09:49] LABS: Potassium (VBG) 2.01 mmol/L (3.70-5.30)
[2023-10-04 09:50] LABS: Acetaminophen Less than 10 mcg/mL (10.0-30.0); Alcohol Less than 10.0 mg/dL (Less than 10); Lipase 67 U/L (8-78); Salicylate Less than 8.0 mg/dL (15.0-30.0)
[2023-10-04 10:27] LABS: Bacteria/HPF None Seen HPF (None Seen); Bilirubin Negative (Negative); Blood, Urine Negative (Negative); CAUTI Indications for Culture Alt mental st,lethar; Clarity Clear (Clear); Glucose, Urine (Dipstick) Normal (Negative); Ketone, Urine Negative (Negative); Leukocyte Negative Leu/uL (Negative); Nitrite Negative (Negative); Protein, Urine (Dipstick) Negative (Neg-Trace); RBC/HPF 0-3 HPF (0-3); Specific Gravity, Urine 1.007 (1.002-1.036); Squamous Epithelial 0-3 HPF (0-3); Urobilinogen Normal mg/dL (Less than 2)
[2023-10-04 10:32] LABS: Urine Culture Reflex No No
[2023-10-04 10:35] LABS: Amphetamine Not Detected (NotDetected); Barbiturates Screen Not Detected (NotDetected); Benzodiazepine Screen Not Detected (NotDetected); Cocaine Metabolite Screen Not Detected (NotDetected); Methadone Not Detected (NotDetected); Methamphetamine Not Detected (NotDetected); Opiate Screen Detected (NotDetected); Oxycodone Screen Not Detected (NotDetected); Phencyclidine (PCP) Not Detected (NotDetected); THC/Cannabinoid Screen Detected (NotDetected); Tricyclic Screen Not Detected (NotDetected)
[2023-10-04 10:37] LABS: SARS-CoV-2 NAA Rapid Test Not Detected (NotDetected)
[2023-10-04 11:06] LABS: Phosphorus 1.9 mg/dL (2.3-4.7)
[2023-10-04 11:40] LABS: Lactic Acid 1.4 mmol/L (0.5-2.2)
[2023-10-04] MEDS ORDERED: Potassium Phosphate 30 MMOL in Sodium Chloride 0.9% 250 ML 250 ML IVPB SCH (12:30)
[2023-10-04] MEDS ORDERED: Potassium Chloride 20 MEQ in Lactated Ringer's 1,000 ML IV SCH ×3 (12:30→15:00)
[2023-10-04] MEDS ORDERED: Potassium Chloride 20 MEQ TAB PO SCH (12:30)
[2023-10-04] MEDS: Acetaminophen 325 MG TAB PO PRN (13:34)
[2023-10-04] MEDS: Metoclopramide HCl 10 MG/2 ML VIAL IVP SCH (13:35)
[2023-10-04] MEDS: ALPRAZolam 0.25 MG TAB PO PRN ×2 (13:35→22:50)
[2023-10-04] MEDS: traMADol HCl 50 MG TAB PO PRN ×2 (13:55→22:49)
[2023-10-04] MEDS ORDERED: Sodium Chloride 0.9% 1,000 ML IV SCH ×2 (16:00→18:15)
[2023-10-04 17:49] LABS: Anion Gap 9 mmol/L (10-20); BUN (Urea Nitrogen) 6 mg/dL (7.0-18.7); Calc. Creatinine Clearance 80 mL/min (70-130); Calcium 7.3 mg/dL (7.8-10.44); Carbon Dioxide 37 mmol/L (22-29); Chloride 88 mmol/L (98-107); Estimated GFR 115; Glucose 85 mg/dL (70-105); Magnesium 1.8 mg/dL (1.6-2.6); Phosphorus 3.4 mg/dL (2.3-4.7); Sodium 132 mmol/L (136-145)
[2023-10-04] MEDS ORDERED: Scopolamine 1 mg/72 hour Patch TD SCH (18:00)
[2023-10-04] MEDS ORDERED: Magnesium Sulfate In Water 4 GM in Premix 1 BAG IVPB SCH (18:15)
[2023-10-04] MEDS ORDERED: Potassium Bicarbonate/Cit Ac 20 MEQ TAB PO SCH (18:15)
[2023-10-04] MEDS ORDERED: Magnesium Sulfate 4 GM in Sodium Chloride 0.9% 250 ML 250 ML IVPB SCH (18:15)
[2023-10-04] MEDS: Potassium Chloride 20 MEQ in Premix 1 BAG IVPB SCH (20:03)
[2023-10-04] MEDS: Pantoprazole 40 MG VIAL IVP SCH (22:24)
[2023-10-04] MEDS: Potassium Chloride 20 MEQ in Lactated Ringer's 1,000 ML IV SCH (23:47)
[2023-10-05 01:07] LABS: Anion Gap 10 mmol/L (10-20); BUN (Urea Nitrogen) 5 mg/dL (7.0-18.7); Calc. Creatinine Clearance 86 mL/min (70-130); Calcium 7.4 mg/dL (7.8-10.44); Carbon Dioxide 33 mmol/L (22-29); Chloride 96 mmol/L (98-107); Estimated GFR 120; Glucose 85 mg/dL (70-105); Magnesium 1.8 mg/dL (1.6-2.6); Sodium 137 mmol/L (136-145)
[2023-10-05 01:15] LABS: Potassium 2.2 mmol/L (3.5-5.1)
[2023-10-05] MEDS: Potassium Chloride 20 MEQ TAB PO SCH ×2 (02:08→03:51)
[2023-10-05] MEDS: Potassium Chloride 20 MEQ in Premix 1 BAG IVPB SCH ×3 (02:23→19:18)
[2023-10-05] MEDS ORDERED: Potassium Chloride 20 MEQ in Premix 1 BAG IVPB SCH (02:30)
[2023-10-05] MEDS: traMADol HCl 50 MG TAB PO PRN ×3 (04:50→23:23)
[2023-10-05] MEDS: ALPRAZolam 0.25 MG TAB PO PRN ×2 (06:55→14:26)
[2023-10-05 07:22] LABS: Mean Corpuscular HGB CONC 37.2 g/dL (32.0-36.0); Mean Corpuscular Hemoglobin 32.9 pg (27.0-31.0); Mean Platelet Volume 11.1 fL (7.4-10.4); RBC Distribution Width 11.9 % (11.5-14.5); Red Blood Cell (RBC) Count 3.25 mill/uL (4.20-5.40); White Blood Cell (WBC) Count 3.2 10x3/uL (4.8-10.8)
[2023-10-05] MEDS: Potassium Chloride 20 MEQ in Lactated Ringer's 1,000 ML IV SCH (07:37)
[2023-10-05 07:45] LABS: ALT (SGPT) 10 U/L (8-55); AST (SGOT) 21 U/L (5-34); Albumin 3.2 g/dL (3.5-5.0); Alkaline Phosphatase 51 U/L (40-110); Anion Gap 12 mmol/L (10-20); BUN (Urea Nitrogen) 4 mg/dL (7.0-18.7); Bilirubin, Total 0.5 mg/dL (0.2-1.2); Calc. Creatinine Clearance 88 mL/min (70-130); Calcium 7.9 mg/dL (7.8-10.44); Carbon Dioxide 33 mmol/L (22-29); Chloride 98 mmol/L (98-107); Estimated GFR 121; Globulin 1.8 g/dL (2.4-3.5); Glucose 67 mg/dL (70-105); Magnesium 1.8 mg/dL (1.6-2.6); Phosphorus 2.7 mg/dL (2.3-4.7); Potassium 2.7 mmol/L (3.5-5.1); Sodium 140 mmol/L (136-145)
[2023-10-05 08:07] LABS: Hematocrit 28.8 % (36.0-47.0); Hemoglobin 10.7 g/dL (12.0-16.0); Mean Corpuscular Volume 88.6 fl (78.0-98.0)
[2023-10-05 08:08] LABS: Delete Auto Diff?? YES; Manual Diff?? YES; Platelet Count 157 10x3/uL (130-400)
[2023-10-05 08:10] LABS: #Monocytes 0.3 thou/uL (0.11-0.59); #Neutrophils 1.4 thou/uL (1.40-6.50); %Basophils 0.9 % (0.0-1.0); %Eosinophils 1.3 % (0.0-10.0); %Lymphocytes 42.3 % (21.0-51.0); %Monocytes 10.3 % (0.0-10.0); %Neutrophils 44.9 % (42.0-75.0)
[2023-10-05] MEDS ORDERED: Potassium Bicarbonate/Cit Ac 20 MEQ TAB PO SCH ×2 (08:45→12:30)
[2023-10-05] MEDS: Pantoprazole 40 MG VIAL IVP SCH ×2 (09:27→23:23)
[2023-10-05] MEDS: Acetaminophen 325 MG TAB PO PRN (09:35)
[2023-10-05 10:02] LABS: CellaVision Operator ID LAB.GE; Large Platelets 2.6 % (0-5); Lymphocytes 45 % (21-51); Monocytes 3 % (0-10); Neutrophil 53 % (42-75); Platelet Adequacy Comment Platelets Normal; Polychromasia SLIGHT = 2-3 cells HPF (0-2); Total Cell Count 38
[2023-10-05 12:12] LABS: Anion Gap 12 mmol/L (10-20); Carbon Dioxide 32 mmol/L (22-29); Chloride 97 mmol/L (98-107); Sodium 138 mmol/L (136-145)
[2023-10-05 12:17] LABS: Potassium 2.6 mmol/L (3.5-5.1)
[2023-10-05] MEDS ORDERED: Potassium Chloride 20 MEQ TAB PO SCH (12:30)
[2023-10-05] MEDS ORDERED: Magnesium Oxide 400 MG TAB PO SCH (12:30)
[2023-10-05] MEDS: Ondansetron PF 4 MG/2 ML Vial IVP PRN ×2 (14:26→23:24)
[2023-10-05] MEDS: Metoclopramide HCl 10 MG/2 ML VIAL IVP SCH (22:55)
[2023-10-06] MEDS: ALPRAZolam 0.25 MG TAB PO PRN ×2 (00:45→08:20)
[2023-10-06] MEDS: Metoclopramide HCl 10 MG/2 ML VIAL IVP SCH (03:29)
[2023-10-06] MEDS ORDERED: Sodium Chloride 0.9% 500 ML IV SCH (03:45)
[2023-10-06 04:21] LABS: Hematocrit 34.1 % (36.0-47.0); Hemoglobin 12.3 g/dL (12.0-16.0); Mean Corpuscular HGB CONC 36.1 g/dL (32.0-36.0); Mean Corpuscular Hemoglobin 32.5 pg (27.0-31.0); Mean Platelet Volume 11.6 fL (7.4-10.4); Platelet Count 189 10x3/uL (130-400); RBC Distribution Width 12.1 % (11.5-14.5); Red Blood Cell (RBC) Count 3.79 mill/uL (4.20-5.40)
[2023-10-06] MEDS: Ondansetron PF 4 MG/2 ML Vial IVP PRN (08:20)
[2023-10-06] MEDS: Potassium Chloride 20 MEQ in Lactated Ringer's 1,000 ML IV SCH (08:20)
[2023-10-06] MEDS: Pantoprazole 40 MG VIAL IVP SCH ×2 (08:21→21:40)
[2023-10-06 08:59] LABS: Anion Gap 11 mmol/L (10-20); BUN (Urea Nitrogen) Less than 4 mg/dL (7.0-18.7); Calc. Creatinine Clearance 84 mL/min (70-130); Calcium 8.4 mg/dL (7.8-10.44); Carbon Dioxide 30 mmol/L (22-29); Chloride 101 mmol/L (98-107); Estimated GFR 119; Glucose 89 mg/dL (70-105); Magnesium 2.5 mg/dL (1.6-2.6); Phosphorus 2.9 mg/dL (2.3-4.7); Potassium 2.9 mmol/L (3.5-5.1); Sodium 139 mmol/L (136-145)
[2023-10-06] MEDS ORDERED: Sodium Chloride 0.9% 1,000 ML IV SCH (09:00)
[2023-10-06] MEDS ORDERED: Magnesium 2 GM/50 ML(in water) 2 GM in Premix 1 BAG IVPB SCH (09:30)
[2023-10-06] MEDS: Potassium Chloride 20 MEQ in Premix 1 BAG IVPB SCH ×6 (10:36→17:33)
[2023-10-06] MEDS: Prochlorperazine Edisylate 10 MG in Sodium Chloride 0.9% 50 ML IVPB PRN (13:51)
[2023-10-06] MEDS: HYDROcodone/Acetaminophen 5/325 mg Tablet PO PRN ×2 (14:32→19:37)
[2023-10-06 18:46] LABS: Magnesium 1.9 mg/dL (1.6-2.6); Phosphorus 1.5 mg/dL (2.3-4.7)
[2023-10-06] MEDS ORDERED: Potassium Chloride 20 MEQ TAB PO SCH (19:15)
[2023-10-06] MEDS ORDERED: Sodium Phosphate 30 MMOL in Sodium Chloride 0.9% 250 ML 250 ML IVPB SCH (20:15)
[2023-10-07] MEDS: HYDROcodone/Acetaminophen 5/325 mg Tablet PO PRN ×2 (02:39→19:52)
[2023-10-07 04:33] LABS: #Eosinphils 0.1 thou/uL (0.0-0.7); #Monocytes 0.3 thou/uL (0.11-0.59); #Neutrophils 2.3 thou/uL (1.40-6.50); %Basophils 1.1 % (0.0-1.0); %Eosinophils 1.6 % (0.0-10.0); %Lymphocytes 26.3 % (21.0-51.0); %Monocytes 8.6 % (0.0-10.0); %Neutrophils 62.1 % (42.0-75.0); Hematocrit 30.5 % (36.0-47.0); Hemoglobin 10.7 g/dL (12.0-16.0); Mean Corpuscular HGB CONC 35.1 g/dL (32.0-36.0); Mean Corpuscular Hemoglobin 33.3 pg (27.0-31.0); Platelet Count 169 10x3/uL (130-400); RBC Distribution Width 12.3 % (11.5-14.5); Red Blood Cell (RBC) Count 3.21 mill/uL (4.20-5.40); White Blood Cell (WBC) Count 3.7 10x3/uL (4.8-10.8)
[2023-10-07 04:50] LABS: Anion Gap 11 mmol/L (10-20); BUN (Urea Nitrogen) Less than 4 mg/dL (7.0-18.7); Calc. Creatinine Clearance 87 mL/min (70-130); Calcium 8.2 mg/dL (7.8-10.44); Carbon Dioxide 28 mmol/L (22-29); Chloride 107 mmol/L (98-107); Estimated GFR 120; Glucose 111 mg/dL (70-105); Sodium 143 mmol/L (136-145)
[2023-10-07] MEDS ORDERED: Potassium Chloride 20 MEQ TAB PO SCH (08:30)
[2023-10-07] MEDS ORDERED: Sodium Chloride 0.9% 1,000 ML IV SCH (08:30)
[2023-10-07] MEDS: Pantoprazole 40 MG VIAL IVP SCH ×2 (09:00→19:53)
[2023-10-07] MEDS: ALPRAZolam 0.25 MG TAB PO PRN ×2 (09:20→19:57)
[2023-10-07] MEDS: Calcium Carbonate 500 MG ChewTAB PO PRN (09:20)
[2023-10-07 09:25] LABS: Magnesium 1.9 mg/dL (1.6-2.6); Phosphorus 3.3 mg/dL (2.3-4.7)
[2023-10-07] MEDS: Prochlorperazine Edisylate 10 MG in Sodium Chloride 0.9% 50 ML IVPB PRN (10:28)
[2023-10-07] MEDS ORDERED: Sertraline 100 MG TAB PO SCH (15:00)
[2023-10-07] MEDS: Scopolamine 1 mg/72 hour Patch TD SCH (16:58)
[2023-10-07 17:24] LABS: Magnesium 1.6 mg/dL (1.6-2.6)
[2023-10-08] MEDS: HYDROcodone/Acetaminophen 5/325 mg Tablet PO PRN ×4 (00:24→21:58)
[2023-10-08] MEDS: ALPRAZolam 0.25 MG TAB PO PRN ×2 (02:29→10:50)
[2023-10-08] MEDS: Prochlorperazine Maleate 5 MG TAB PO PRN ×2 (02:29→20:44)
[2023-10-08 04:57] LABS: #Basophils 0.1 thou/uL (0.0-0.2); #Eosinphils 0.1 thou/uL (0.0-0.7); #Monocytes 0.4 thou/uL (0.11-0.59); #Neutrophils 3.1 thou/uL (1.40-6.50); %Basophils 0.9 % (0.0-1.0); %Lymphocytes 31.5 % (21.0-51.0); %Monocytes 7.9 % (0.0-10.0); %Neutrophils 57.5 % (42.0-75.0); Hematocrit 33.2 % (36.0-47.0); Hemoglobin 11.4 g/dL (12.0-16.0); Mean Corpuscular HGB CONC 34.3 g/dL (32.0-36.0); Mean Corpuscular Hemoglobin 32.7 pg (27.0-31.0); Mean Corpuscular Volume 95.1 fl (78.0-98.0); Mean Platelet Volume 11.8 fL (7.4-10.4); Platelet Count 188 10x3/uL (130-400); Red Blood Cell (RBC) Count 3.49 mill/uL (4.20-5.40); White Blood Cell (WBC) Count 5.5 10x3/uL (4.8-10.8)
[2023-10-08 05:18] LABS: Anion Gap 13 mmol/L (10-20); BUN (Urea Nitrogen) Less than 4 mg/dL (7.0-18.7); Calc. Creatinine Clearance 90 mL/min (70-130); Carbon Dioxide 24 mmol/L (22-29); Chloride 107 mmol/L (98-107); Estimated GFR 121; Glucose 110 mg/dL (70-105); Potassium 3.1 mmol/L (3.5-5.1); Sodium 141 mmol/L (136-145)
[2023-10-08] MEDS: Pantoprazole 40 MG VIAL IVP SCH ×2 (09:22→20:45)
[2023-10-08] MEDS: Sertraline 100 MG TAB PO SCH (09:22)
[2023-10-08] MEDS ORDERED: Magnesium Sulfate In Water 4 GM in Premix 1 BAG IVPB SCH (09:30)
[2023-10-08 09:49] LABS: Phosphorus 2.9 mg/dL (2.3-4.7)
[2023-10-08] MEDS: Ondansetron PF 4 MG/2 ML Vial IVP PRN (13:25)
[2023-10-08 19:46] LABS: Magnesium 2.4 mg/dL (1.6-2.6); Phosphorus 2.8 mg/dL (2.3-4.7)
[2023-10-08] MEDS: Potassium Chloride 20 MEQ TAB PO SCH (20:44)
[2023-10-08] MEDS: ALPRAZolam 0.5 MG TAB PO PRN (20:44)
[2023-10-09] MEDS: HYDROcodone/Acetaminophen 5/325 mg Tablet PO PRN ×4 (01:48→17:22)
[2023-10-09 05:01] LABS: #Eosinphils 0.1 thou/uL (0.0-0.7); #Monocytes 0.3 thou/uL (0.11-0.59); #Neutrophils 2.1 thou/uL (1.40-6.50); %Basophils 1.1 % (0.0-1.0); %Eosinophils 1.9 % (0.0-10.0); %Lymphocytes 32.4 % (21.0-51.0); %Monocytes 8.8 % (0.0-10.0); %Neutrophils 55.5 % (42.0-75.0); Hemoglobin 10.8 g/dL (12.0-16.0); Mean Corpuscular HGB CONC 34.8 g/dL (32.0-36.0); Mean Corpuscular Hemoglobin 33.4 pg (27.0-31.0); Mean Platelet Volume 11.5 fL (7.4-10.4); Platelet Count 175 10x3/uL (130-400); RBC Distribution Width 12.1 % (11.5-14.5); Red Blood Cell (RBC) Count 3.23 mill/uL (4.20-5.40); White Blood Cell (WBC) Count 3.8 10x3/uL (4.8-10.8)
[2023-10-09] MEDS: Prochlorperazine Maleate 5 MG TAB PO PRN ×3 (05:19→18:47)
[2023-10-09 05:33] LABS: Anion Gap 13 mmol/L (10-20); BUN (Urea Nitrogen) Less than 4 mg/dL (7.0-18.7); Calc. Creatinine Clearance 104 mL/min (70-130); Calcium 8.2 mg/dL (7.8-10.44); Carbon Dioxide 25 mmol/L (22-29); Chloride 108 mmol/L (98-107); Estimated GFR 121; Glucose 101 mg/dL (70-105); Potassium 3.2 mmol/L (3.5-5.1); Sodium 143 mmol/L (136-145)
[2023-10-09] MEDS ORDERED: Potassium Chloride 20 MEQ TAB PO SCH (09:00)
[2023-10-09 09:21] LABS: Magnesium 2.2 mg/dL (1.6-2.6)
[2023-10-09] MEDS: Sertraline 100 MG TAB PO SCH (09:41)
[2023-10-09] MEDS: ALPRAZolam 0.5 MG TAB PO PRN ×2 (09:41→17:22)
[2023-10-09] MEDS: Pantoprazole 40 MG VIAL IVP SCH ×2 (09:43→20:40)
[2023-10-09] MEDS: Lactated Ringer's 1,000 ML IV SCH ×2 (09:43→17:22)
[2023-10-09] MEDS: Potassium Chloride 20 MEQ TAB PO SCH ×2 (09:44→20:40)
[2023-10-09] MEDS: Ondansetron PF 4 MG/2 ML Vial IVP PRN (17:22)
[2023-10-10] MEDS: ALPRAZolam 0.5 MG TAB PO PRN ×3 (01:07→18:53)
[2023-10-10] MEDS: HYDROcodone/Acetaminophen 5/325 mg Tablet PO PRN ×4 (01:07→23:03)
[2023-10-10] MEDS: Ondansetron PF 4 MG/2 ML Vial IVP PRN ×3 (01:14→23:33)
[2023-10-10] MEDS: Prochlorperazine Maleate 5 MG TAB PO PRN ×3 (04:22→23:32)
[2023-10-10 05:02] LABS: #Monocytes 0.4 thou/uL (0.11-0.59); #Neutrophils 2.7 thou/uL (1.40-6.50); %Lymphocytes 23.3 % (21.0-51.0); %Monocytes 8.6 % (0.0-10.0); %Neutrophils 65.9 % (42.0-75.0); Hemoglobin 10.9 g/dL (12.0-16.0); Mean Corpuscular HGB CONC 34.1 g/dL (32.0-36.0); Mean Corpuscular Hemoglobin 32.8 pg (27.0-31.0); Mean Corpuscular Volume 96.4 fl (78.0-98.0); Mean Platelet Volume 11.8 fL (7.4-10.4); Platelet Count 190 10x3/uL (130-400); RBC Distribution Width 12.1 % (11.5-14.5); Red Blood Cell (RBC) Count 3.32 mill/uL (4.20-5.40); White Blood Cell (WBC) Count 4.1 10x3/uL (4.8-10.8)
[2023-10-10 05:21] LABS: Anion Gap 10 mmol/L (10-20); BUN (Urea Nitrogen) Less than 4 mg/dL (7.0-18.7); Calc. Creatinine Clearance 99 mL/min (70-130); Calcium 8.6 mg/dL (7.8-10.44); Carbon Dioxide 27 mmol/L (22-29); Chloride 110 mmol/L (98-107); Estimated GFR 119; Glucose 99 mg/dL (70-105); Magnesium 1.7 mg/dL (1.6-2.6); Potassium 3.5 mmol/L (3.5-5.1); Sodium 143 mmol/L (136-145)
[2023-10-10] MEDS ORDERED: Potassium Chloride 20 MEQ TAB PO SCH (08:45)
[2023-10-10] MEDS ORDERED: Magnesium 2 GM/50 ML(in water) 2 GM in Premix 1 BAG IVPB SCH (08:45)
[2023-10-10] MEDS: Sertraline 100 MG TAB PO SCH (11:05)
[2023-10-10] MEDS: Pantoprazole 40 MG VIAL IVP SCH ×2 (11:05→22:05)
[2023-10-10] MEDS: Scopolamine 1 mg/72 hour Patch TD SCH (17:44)
[2023-10-11] MEDS: ALPRAZolam 0.5 MG TAB PO PRN ×3 (00:30→17:21)
[2023-10-11] MEDS: HYDROcodone/Acetaminophen 5/325 mg Tablet PO PRN ×4 (03:44→21:32)
[2023-10-11] MEDS: Prochlorperazine Maleate 5 MG TAB PO PRN ×3 (05:29→20:32)
[2023-10-11] MEDS: Ondansetron PF 4 MG/2 ML Vial IVP PRN ×3 (05:31→20:33)
[2023-10-11] MEDS: Pantoprazole 40 MG VIAL IVP SCH ×2 (08:56→20:32)
[2023-10-11] MEDS: Sertraline 100 MG TAB PO SCH (08:56)
[2023-10-11 14:11] VITALS: BMI 18.9
[2023-10-11 14:17] LABS: #Eosinphils 0.1 thou/uL (0.0-0.7); #Monocytes 0.3 thou/uL (0.11-0.59); #Neutrophils 2.2 thou/uL (1.40-6.50); %Lymphocytes 32.7 % (21.0-51.0); %Monocytes 7.6 % (0.0-10.0); %Neutrophils 55.4 % (42.0-75.0); Hematocrit 30.5 % (36.0-47.0); Hemoglobin 10.5 g/dL (12.0-16.0); Mean Corpuscular HGB CONC 34.4 g/dL (32.0-36.0); Mean Corpuscular Hemoglobin 33.1 pg (27.0-31.0); Mean Corpuscular Volume 96.2 fl (78.0-98.0); Mean Platelet Volume 11.4 fL (7.4-10.4); Platelet Count 184 10x3/uL (130-400); RBC Distribution Width 11.9 % (11.5-14.5); Red Blood Cell (RBC) Count 3.17 mill/uL (4.20-5.40)
[2023-10-11] MEDS ORDERED: Senokot S 8.6-50 MG TAB PO SCH (14:33)
[2023-10-11] MEDS ORDERED: Polyethylene Glycol 3350 17 GM Packet PO SCH (14:33)
[2023-10-11 14:45] LABS: Anion Gap 10 mmol/L (10-20); BUN (Urea Nitrogen) Less than 4 mg/dL (7.0-18.7); Calc. Creatinine Clearance 87 mL/min (70-130); Calcium 8.4 mg/dL (7.8-10.44); Carbon Dioxide 23 mmol/L (22-29); Chloride 111 mmol/L (98-107); Estimated GFR 115; Glucose 93 mg/dL (70-105)
[2023-10-11] MEDS ORDERED: Lactated Ringer's 1,000 ML IV SCH (14:45)
[2023-10-11 14:47] LABS: Magnesium 1.9 mg/dL (1.6-2.6)
[2023-10-11 15:43] LABS: Sodium 140 mmol/L (136-145)
[2023-10-11] MEDS ORDERED: Scopolamine 1 mg/72 hour Patch TD SCH (18:00)
[2023-10-11] MEDS: Senokot S 8.6-50 MG TAB PO SCH (20:31)
[2023-10-12] MEDS: ALPRAZolam 0.5 MG TAB PO PRN ×4 (00:19→18:28)
[2023-10-12] MEDS: HYDROcodone/Acetaminophen 5/325 mg Tablet PO PRN ×5 (01:07→18:27)
[2023-10-12] MEDS: Ondansetron PF 4 MG/2 ML Vial IVP PRN ×2 (02:59→09:59)
[2023-10-12] MEDS: Prochlorperazine Maleate 5 MG TAB PO PRN ×3 (02:59→18:28)
[2023-10-12 05:08] LABS: #Eosinphils 0.1 thou/uL (0.0-0.7); #Monocytes 0.3 thou/uL (0.11-0.59); #Neutrophils 2.1 thou/uL (1.40-6.50); %Basophils 1.2 % (0.0-1.0); %Eosinophils 1.8 % (0.0-10.0); %Lymphocytes 24.6 % (21.0-51.0); %Monocytes 8.9 % (0.0-10.0); %Neutrophils 63.2 % (42.0-75.0); Hematocrit 32.8 % (36.0-47.0); Mean Corpuscular HGB CONC 33.5 g/dL (32.0-36.0); Mean Corpuscular Hemoglobin 32.7 pg (27.0-31.0); Mean Corpuscular Volume 97.6 fl (78.0-98.0); Platelet Count 181 10x3/uL (130-400); Red Blood Cell (RBC) Count 3.36 mill/uL (4.20-5.40); White Blood Cell (WBC) Count 3.4 10x3/uL (4.8-10.8)
[2023-10-12 05:28] LABS: Anion Gap 12 mmol/L (10-20); BUN (Urea Nitrogen) Less than 4 mg/dL (7.0-18.7); Calc. Creatinine Clearance 82 mL/min (70-130); Calcium 8.4 mg/dL (7.8-10.44); Carbon Dioxide 22 mmol/L (22-29); Chloride 112 mmol/L (98-107); Estimated GFR 107; Glucose 85 mg/dL (70-105); Potassium 4.2 mmol/L (3.5-5.1); Sodium 142 mmol/L (136-145)
[2023-10-12] MEDS: Pantoprazole 40 MG VIAL IVP SCH (08:09)
[2023-10-12] MEDS: Senokot S 8.6-50 MG TAB PO SCH (08:10)
[2023-10-12] MEDS: Sertraline 100 MG TAB PO SCH (08:10)
[2023-10-12] MEDS: Calcium Carbonate 500 MG ChewTAB PO PRN (08:10)
[2023-10-12 08:30] VITALS: BP 138/51; TEMP 98.2
[2023-10-12] MEDS ORDERED: Polyethylene Glycol 3350 17 GM Packet PO SCH (09:00)
[2023-10-12] MEDS ORDERED: Magnesium 2 GM/50 ML(in water) 2 GM in Premix 1 BAG IVPB SCH (11:00)
[2023-10-12] MEDS ORDERED: ALPRAZolam 0.5 MG TAB PO PRN (11:34)
[2023-10-12] MEDS ORDERED: Lactated Ringer's 1,000 ML IV SCH (15:30)
== END 2023-10-12 18:49 | disposition home or self-care (01) | DRG 641 ==
LOC: ERS 06:05 → SUATTDRO 06:05 → ERHOLD 10:01 → 2NO 13:13 → T4-B 10-10 21:36
PROVIDERS: ADMIT Internal Medicine; ATTEND Internal Medicine
PROC: 4A043R1 Measurement of Venous Saturation, Peripheral, Percutaneous Approach (ICD-10-PCS; principal; 2023-10-04)
DX: E87.6 Hypokalemia (principal); Z68.1 Body mass index [BMI] 19.9 or less, adult; E87.8 Other disorders of electrolyte and fluid balance, not elsewhere classified; R63.6 Underweight; E86.0 Dehydration; R11.15 Cyclical vomiting syndrome unrelated to migraine; E87.1 Hypo-osmolality and hyponatremia; F31.9 Bipolar disorder, unspecified; F12.10 Cannabis abuse, uncomplicated; R11.2 Nausea with vomiting, unspecified; E83.39 Other disorders of phosphorus metabolism; E83.42 Hypomagnesemia; K59.00 Constipation, unspecified; F41.1 Generalized anxiety disorder; I25.2 Old myocardial infarction; Z90.49 Acquired absence of other specified parts of digestive tract; Z91.148 Patient's other noncompliance with medication regimen for other reason; Z88.8 Allergy status to other drugs, medicaments and biological substances; Z91.014 Allergy to mammalian meats; Z11.52 Encounter for screening for COVID-19; Z91.018 Allergy to other foods; Z79.899 Other long term (current) drug therapy; Z71.6 Tobacco abuse counseling
CPT/HCPCS: 36415; 71045; 80048; 80053; 80306; 80307; 81001; 82550; 82805; 83605; 83690; 83735; 84100; 84443; 84484; 84703; 85025; 85027; 87040; 93005; 93010; C9113; J0780; J2270; J2405; J2765; J3475; J3480; J7030; J7042; J7050; J7120; Q0164